=== PATIENT | male | born 1975 | race Caucasian/White ===

== ENCOUNTER 2016-07-10 12:57 | Emergency (ER) | payer BC ==
[2016-07-10 13:03] VITALS: BP 155/82; PULSE 65; RESP 18; TEMP 97.3
[2016-07-10 13:25] LABS: Glucose,Whole Blood 128 mg/dL (75-99)
[2016-07-10] MEDS ORDERED: DEXAMETHASONE 4 MG TAB PO STA (13:45)
--- NOTE | 2016-07-10 13:46 | ED ---
General Adult HPI - General Chief complaint: Dizziness Stated complaint: Dizziness Time Seen by Provider: 07/10/16 13:10 Source: patient, RN notes reviewed Mode of arrival: ambulatory Limitations: no limitations - History of Present Illness Initial comments: 40-year-old male presenting for dizziness. Patient states that he has had several episodes of dizziness lasting about 10 seconds with intense dizzy feeling. He states he's had similar symptoms in the past. Does state he has seasonal ALLERGIES and thinks he may have some vertigo secondary to sinus congestion. He is not currently taking any medications. He denies any significant cardiac history. He denies any significant family cardiac history. He states he has had cardiac workup in the past because he had palpitations. He states he had stress test and Holter monitor which were unremarkable. He denies any symptoms like this today. He denies any chest pain or shortness breath. He denies any syncope. He denies any fevers or chills. - Related Data Previous Rx's Medication Instructions Recorded Cetirizine HCl [Zyrtec] 10 mg PO DAILY 30 Days 07/10/16 Fluticasone Nasal [place] [Flonase 2 spr EA NOSTRIL DAILY #1 bottle 07/10/16 Nasal [place]] Meclizine [Antivert] 25 mg PO QID PRN #16 tab 07/10/16 Allergies Allergy/AdvReac Type Severity Reaction Status Date / Time No Known Allergies Allergy Verified 07/10/16 13:31 Review of Systems ROS Statement: Those systems with pertinent positive or pertinent negative responses have been documented in the HPI. ROS Other: All systems not noted in ROS Statement are negative. Past Medical History Additional Past Medical History / Comment(s): hx of PVC. History of Any Multi-Drug Resistant Organisms: None Reported Past Surgical History: No Surgical Hx Reported Past Psychological History: No Psychological Hx Reported Smoking Status: Current some day smoker Past Alcohol Use History: Occasional Past Drug Use History: None Reported General Exam - General Exam Comments Initial Comments: General: Awake and Alert. No acute distress. Does not appear acutely ill. Eyes: IRMA, EOM intact. No nystagmus. No scleral icterus. HENT: Atraumatic, normocephalic. Mucous membranes moist. Trachea midline. Neck: The neck is supple, there is no tenderness or JVD. Cardiovascular: Regular rate and rhythm. No murmur, rub, or gallop is appreciated. Distal pulses intact. Respiratory: Lungs are clear to auscultation bilaterally. No wheezes, rales, rhonchi. No respiratory distress. Gastrointestinal: Soft, Nontender. No rebound or guarding. Non-distended. No masses or organomegaly noted. No CVA tenderness. Musculoskeletal: No tenderness. Normal ROM. No gross deformity. No strength deficits. Neurological: A&Ox3. CN II-XII grossly intact, There are no obvious motor or sensory deficits. Coordination appears grossly intact. Speech is normal. Normal gait. Skin: Skin is warm and dry and no rashes or lesions are noted. Psychiatric: Cooperative, appropriate mood & affect, normal judgment. Limitations: no limitations Course Vital Signs 07/10/16 12:58 Temperature 97.3 F L Pulse Rate 65 Respiratory 18 Rate Blood Pressure 155/82 O2 Sat by Pulse 100 Oximetry EKG Findings - EKG Comments: EKG Findings:: EKG 13:26. Normal sinus rhythm. Rate 68. TN 174. QRS 98. QT/ QTc 408/433. Normal axis. No STEMI. Nonspecific EKG. Medical Decision Making - Medical Decision Making 40-year-old male presenting for dizziness. Patient also sinus congestion. He states that similar symptoms in the past. Patient symptoms described are consistent with peripheral vertigo. Exam with no focal neurological deficits. His gait is intact. Doesn't have any active symptoms during his course in the ED. Low suspicion of central vertigo or CVAs cause of symptoms. Discussed symptomatic management for sinusitis which is likely causing some of his underlying vertigo. Patient denies any nasal discharge or fevers concerning for bacterial coverage at this time. Given dose of steroid in the ED. Rx for nasal steroid and antihistamines at home. Rx for meclizine in case symptoms return. Discussed continue close follow-up with PCP. Discussed ENT follow-up as well. Discussed concerning signs symptoms for immediate return to the ED. Patient and are agreeable with plan and discharge home. - Lab Data Lab Results 07/10/16 Range/Units 13:20 POC Glucose (mg/dL) 128 H (75-99) mg/dL POC Glu [employer] Clari Lara - EKG Data -: EKG Interpreted by [facility] EKG shows normal: sinus rhythm Rate: normal Disposition Clinical Impression: Dizziness, Sinusitis Disposition: HOME SELF-CARE Condition: Stable Instructions: Dizziness (ED) Prescriptions: Cetirizine HCl [Zyrtec] 10 mg PO DAILY 30 Days Fluticasone Nasal [place] [Flonase Nasal [place]] 2 spr EA NOSTRIL DAILY #1 bottle Meclizine [Antivert] 25 mg PO QID PRN #16 tab PRN Reason: dizziness Referrals: Tulio Antoine MD [Primary Care Provider] - 1-2 days Time of Disposition: 14:21
== END 2016-07-10 14:33 | disposition home or self-care (01) ==
LOC: EC 12:57
DX: J32.9 Chronic sinusitis, unspecified (principal); R42 Dizziness and giddiness; F17.200 Nicotine dependence, unspecified, uncomplicated
CPT/HCPCS: 36415; 93005; 99284; J8540

== ENCOUNTER → 2020-01-28 | Outpatient (CLI) | payer BC | END | disposition home or self-care (01) | LOC: LABWHC1 12:43 | PROVIDERS: ATTEND Nurse Practitioner Family | DX: Z20.828 Contact with and (suspected) exposure to other viral communicable diseases (principal) | CPT/HCPCS: U0003; C9803 ==

== ENCOUNTER → 2020-07-16 | Outpatient (CLI) | payer BC | END | disposition home or self-care (01) | LOC: LABWHC1 17:05 | PROVIDERS: ATTEND Family Medicine | DX: Z20.822 Contact with and (suspected) exposure to COVID-19 (principal) | CPT/HCPCS: U0003; C9803; U0005 ==